=== PATIENT | female | born 2000 | race Caucasian/White ===

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

== ENCOUNTER 2020-06-14 12:35 | Emergency (ER) | payer OTHER ==
[2020-06-14 12:41] VITALS: BP 131/78
--- NOTE | 2020-06-14 13:23 | ER Document Report ---
HPI - HPI Patient complains to provider of: Needlestick Time Seen by Provider: 06/14/20 12:47 Pain Level: Denies Notes: 20-year-old female to the emergency department with complaints of a needlestick to her right ring finger that occurred yesterday. 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 She states the gentleman came to check out and by a shirt that had a clothes pin in it. She states she pricked her finger on the clothes pin. She states the customer then told her that he had also pricked his finger just prior to coming up to her on the needle. She states that she asked to her boss is what she should do and then told him that she was coming to the doctor. She did not asked them if she has an employee health or occupational health protocol that she should follow. While talking with her she did call her transformation manager and apparently she is supposed to go to urgent care nearby. She denies any other injuries. - CONSTITUTIONAL Constitutional: DENIES: Fever, Chills - EENT EENT: DENIES: Sore Throat, Ear Pain - NEURO Neurology: DENIES: Headache, Weakness - CARDIOVASCULAR Cardiovascular: DENIES: Chest pain - RESPIRATORY Respiratory: DENIES: Trouble Breathing, Coughing - GASTROINTESTINAL Gastrointestinal: DENIES: Abdominal Pain, Nausea, Patient vomiting, Diarrhea - DERM Skin Color: Normal Skin Problems: Puncture Wound - clothes pin needlestick Past Medical History - General Information source: Patient - Social History Smoking Status: Never Smoker Frequency of alcohol use: None Drug Abuse: None Family History: Reviewed & Not Pertinent Patient has homicidal ideation: No Renal/ Medical History: Denies: Hx Peritoneal Dialysis Past Surgical History: Reports: Hx Orthopedic Surgery - right hand - Immunizations Immunizations up to date: Yes Hx Diphtheria, Pertussis, Tetanus Vaccination: Yes Vertical Provider Document - CONSTITUTIONAL Agree With Documented VS: Yes Exam Limitations: No Limitations General Appearance: WD/WN, No Apparent Distress - INFECTION CONTROL TRAVEL OUTSIDE OF THE [place] IN LAST 30 DAYS: No - HEENT HEENT: Atraumatic, Normocephalic, PERRLA - NECK Neck: Normal Inspection, Supple - RESPIRATORY Respiratory: Breath Sounds Normal, No Respiratory Distress - CARDIOVASCULAR Cardiovascular: Regular Rate, Regular Rhythm, No Murmur - GI/ABDOMEN Gastrointestinal: Abdomen Soft, Abdomen Non-Tender, No Organomegaly - MUSCULOSKELETAL/EXTREMETIES Musculoskeletal/Extremeties: MONIKA, FROM Notes: There is a small puncture wound to the right volar ring finger. There is no evidence for streaking erythema or purulent discharge. Patient has full range of motion of all fingers against resistance with 5 out of 5 strength in flexion and extension. Cap refill is less than 2 seconds. Radial pulses are intact and equal. - NEURO Level of Consciousness: Awake, Alert, Appropriate - DERM Integumentary: Warm, Dry Course - Re-evaluation Re-evalutation: 06/14/20 Impression: Needlestick while at work. This is a clothes needle pin. Just prior to her sticking herself with this her customer also stuck himself. Patient does not have any information on the customer. And while we were discussing what needed to be done for her she was able to call her transformation manager. Apparently she is post to go to urgent care. Advised her to go back to work and get the appropriate paperwork so she can then get the appropriate screening for the needlestick. Patient agrees with the plan. We will discharge - Vital Signs Vital signs: Temp Pulse Resp BP Pulse Ox 98.8 F 84 16 131/78 H 98 06/14/20 12:40 06/14/20 12:40 06/14/20 12:40 06/14/20 12:40 06/14/20 12:40 Discharge - Discharge Clinical Impression: Needlestick injury accident Condition: Stable Disposition: HOME, SELF-CARE Additional Instructions: Follow-up with your employer to go to the designated urgent care for employee health for further needlestick injury monitoring. Return if any worsening symptoms. Referrals: [facility] [Provider Group] - Follow up as needed
== END 2020-06-14 13:27 | disposition home or self-care (01) ==
LOC: ER 12:35
DX: S61.234A Puncture wound without foreign body of right ring finger without damage to nail, initial encounter (principal); W27.3XXA Contact with needle (sewing), initial encounter; Y92.513 Shop (commercial) as the place of occurrence of the external cause; Y99.0 Civilian activity done for income or pay
CPT/HCPCS: 99282